=== PATIENT | male | born 1980 | race Caucasian/White ===

== ENCOUNTER 2021-01-12 14:34 | Inpatient (IN) ==
[2021-01-12] MEDS ORDERED: KETOROLAC TROMETHAMINE 15 MG/ML VIAL IV STA (15:20)
[2021-01-12] MEDS ORDERED: SODIUM CHLORIDE 0.9% 1000ML 1,000 ML IV STA (15:20)
[2021-01-12] MEDS ORDERED: ACETAMINOPHEN 500 MG TAB PO STA (15:20)
--- NOTE | 2021-01-12 15:42 | Emergency Department Note ---
Impression & Plan Fever of unknown origin, Arthralgia ED Provider Note CHIEF COMPLAINT: Fever, headaches, joint pain, right leg pain HISTORY OF PRESENTING ILLNESS: This is a 40-year-old male who presents to the emergency department by private vehicle with complaint of fever, headaches, joint pain, and pain in his right leg. Patient states that he first started feeling ill over the weekend, mostly noting some sinus congestion. He states that this is not unusual for him as he has a lot of allergies. He states on Friday he started to develop more of a headache and some body aches, and he got tested for COVID-19, he reports that this was negative. He states he continued to feel worse throughout the week, developing worsening body aches and joint pain and then began to have pain in his right leg going up to his right hip. He states it has been somewhat painful to walk on the leg. He is concern for a blood clot. He notes that he was having some low-grade fevers for the past few days, but today he had a fever of 105. He states that he took Tylenol and Aleve earlier today, and he believes that his fever is starting to break. He is sweating profusely. He notes a mild headache which is frontal in nature and achy, he rates this a 2/10. He states he is mostly having aches all over and pain in his joints. He especially complains of pain in his right knee and right hip, which he rates a 5/10. He denies any chest pain, chest tightness, shortness of breath, cough, hemoptysis, abdominal pain, back pain, numbness/tingling or weakness of the extremities, bowel or bladder dysfunction, nausea, vomiting, diarrhea, or urinary complaints. He has noticed a red rash on both of his legs. He is a smoker. He denies any IV drug abuse history. He denies any penile discharge, testicular pain, or scrotal swelling. Patient denies any concern for STDs and denies any history of this. His last sexual partner was about 4 years ago, female, and he reports that this was monogamous. He denies any history of known tick bites, but does note that he walks through a wooded area twice a day from his house to the bus stop. REVIEW OF SYSTEMS: A complete 10 point review of systems was reviewed with the patient with pertinent positives and negatives as per history of present illness. All else were negative. PAST MEDICAL HISTORY: No significant past medical or surgical history SOCIAL HISTORY: Lives at home, he is a current everyday smoker ALLERGIES: Reviewed in chart and with the patient PHYSICAL EXAM: CONSTITUTIONAL: Pleasant and cooperative. Nontoxic-appearing and in no acute distress, but appears to feel unwell. He is profusely diaphoretic, but is not pale. He does appear to be mildly dehydrated clinically. HEENT: Normocephalic, atraumatic. PERRL, EOMI with no nystagmus. TMs normal bilaterally. Pharynx is not erythematous, no tonsillar edema or exudate. Tacky mucous membranes. NECK: Supple, full active range of motion without discomfort. No nuchal rigidity or meningismus. No cervical adenopathy. RESPIRATORY: Clear to auscultation bilaterally with no wheezing, crackles, r honchi or stridor. Equal expansion bilaterally. CARDIOVASCULAR: Regular rate and rhythm with no murmurs, rubs or gallops. Normal peripheral perfusion. No edema. GASTROINTESTINAL: Soft, nontender, nondistended. Obese abdomen. No palpable masses or HSM. Bowel sounds present in all quadrants. No CVA tenderness bilaterally. MUSCULOSKELETAL: There is mild pain with range of motion of both ankles, both knees, and both hips, more so in the right leg. There is AN area of tenderness to palpation along the proximal aspect of the right medial thigh, no swelling or fluctuance noted. No tenderness directly over the right hip joint. There were no notable joint effusions. INTEGUMENTARY: There is an area of erythema on the anterior aspect of the right calf that is warm and mildly tender to palpation, blanches. There are blotchy areas of light erythema over the anterior aspects of both knees, both thighs, and both feet/ankles. Erythema also noted around the neck and chest. These areas are all blanching and nontender. No blistering or sloughing of skin. No open wounds or purulent discharge. No abscesses. Patchy eczema on the right calf and the anterior aspects of the elbows. NEUROLOGIC: Alert and oriented X 4 with normal affect. Cranial nerves II-XII grossly intact, no facial droop. No pronator drift. No focal neurologic deficits noted. 5/5 strength in all 4 extremities, sensation intact to light touch in all 4 extremities. Dorsiflexion and plantarflexion intact and strong. Normal patellar and Achilles reflexes. Normal speech. Normal gait observed. ED COURSE AND MEDICAL DECISION MAKING: CC: Patient presenting with complaint of fever, headaches, joint pain and diffu se body aches DIFFERENTIAL DIAGNOSIS: Includes, but not limited to viral syndrome, otitis media, pharyngitis, pneumonia, influenza, COVID-19, meningitis, urinary tract infection, sepsis, bacteremia, sinusitis, tickborne illness, sexually transmitted infections, DVT, as well as other pathologies. INTERPRETATION OF LABS: Leukocytosis, no anemia, normal platelets, no significant electrolyte abnormalities, normal renal function, normal liver enzymes. CRP and ESR are elevated. Procalcitonin is significantly elevated. Lactate is within normal limits. Blood cultures pending. Troponin is unde tectable. Urinalysis is negative for infection. Lyme antibodies are negative, Anaplasma smear is negative. Additional tickborne illness testing for send out. COVID-19 negative. EKG: Shows normal sinus rhythm with a rate of 97 bpm, normal intervals, no ST elevation or depression, no ectopy by my interpretation. No previous EKG available for comparison. MEDICATION RECONCILIATION: I attest that I have personally reviewed the patient's current medication list. MDM SUMMARY: Patient was evaluated at bedside, history and physical exam performed. Patient is alert and oriented, in no acute distress, resting calmly in stretcher. He is noted to be tachycardic and was febrile by my check, 100.2 when I assessed him in the room. He is drenched in sweat, he attributes this to his fever coming down and also to his anxiety. He complains primarily of joint pain in both legs, more so in the right leg and up around his right hip. He states he is "deathly afraid that he might have a blood clot." Cardiac monitoring: An order was placed for continuous cardiac monitoring. The monitor shows a rate of 119 bpm with sinus tachycardia rhythm. Orders were placed for labs including inflammatory markers and procalcitonin, lactate, blood cultures x2, Lyme antibodies, Anaplasma smear, send out testing for anaplasmosis, ehrlichiosis, babesiosis, urinalysis, IV fluid bolus x2 L for hydration, p.o. Tylenol and IV Toradol for fever and pain, EKG, chest x-ray, CT of the head, and ultrasound venous Doppler of the right lower extremity. Patient discussed with Dr. Fregoso, who agrees with my assessment, plan, and disposition. Labs and imaging reviewed, notable for leukocytosis and significantly elevated inflammatory markers and procalcitonin. Lactate was normal. Chest x-ray was clear. Head CT was negative for any acute intracranial abnormalities, but did note inflammatory changes consistent with sinusitis. Venous ultrasound was negative for DVT of the right lower extremity, there was note of an enlarged right inguinal lymph node. Initial testing for Lyme and anaplasmosis is negative. Testing for COVID-19 is negative. Patient reassessed multiple times throughout ED stay, he has remained hemodynamically stable, has defervesced appropriately after the Tylenol and Toradol (recheck temp 98.8), and he reports he is feeling significantly improved. He is no longer diaphoretic. I do suspect the patient's symptoms could be related to a tickborne illness, however there is no testing result to support this at this time, and there is not a known history of tick exposure. Given the history of high fever with leukocytosis, inflammatory markers and procalcitonin elevated, and no clear source for the patient's symptoms, I did feel that he warranted admission for empiric antibiotic coverage and further work-up. The patient was agreeable to this. I spoke on the phone with the [facility] hospitalist team, who agreed to evaluate the patient for admission. Antibiotic choice was deferred to the hospitalist team. The patient was stable at time of admission. The chart was completed utilizing [employer] Speech voice recognition software. Grammatical errors, random word insertions, pronoun errors, and incomplete sentences are an occasional consequence of this system due to software l imitations, ambient noise, and hardware issues. Any formal questions or concerns about the content, text, or information contained within the body of this dictation should be directly addressed to the nurse practitioner for clarification. Past Med/Surg History Medical History (Updated 01/12/21 @ 21:35 by STEPHANIE Ramirez) Eczema Surgical History (Updated 01/12/21 @ 20:15 by Shilpa Garcia PA-C) Hx of nasal septoplasty Family History (Updated 01/12/21 @ 20:16 by Shilpa Garcia PA-C) Grandfather (Maternal) Lung cancer Grandmother (Maternal) Lung cancer Mother Rheumatoid arthritis Social History (Updated 01/12/21 @ 20:16 by Shilpa Garcia PA-C) Smoking Status: Current every day smoker Tobacco Type: Cigarettes and E-cigarettes / Vaping Cigarettes Per Day: 1 pack/day; Hx Alcohol Use: Yes (Sixpack of beer on the weekend) Hx Substance Use: Yes Last Used Substance Other:: Previously used marijuana, reports has not used since 04/2020 Feels Safe at Home: Yes Allergies Allergies Allergy/AdvReac Type Severity Reaction Status Date / Time Sulfa (Sulfonamide Allergy Severe anaphylaxis Unverified 01/12/21 20:22 Antibiotics) Cephalosporins Allergy Unknown Hives Unverified 01/12/21 20:23 Home Meds Home Medications Medication Instructions Recorded Confirmed acetaminophen [Tylenol Extra 1,000 mg PO Q6H PRN 01/12/21 01/12/21 Strength] azelastine 2 spray INTRANASAL DAILY 01/12/21 01/12/21 cetirizine [Zyrtec] 10 mg PO DAILY 01/12/21 01/12/21 fluticasone propionate [Flonase 2 spray INTRANASAL DAILY PRN 01/12/21 01/12/21 Allergy Relief] naproxen sodium [Aleve] 440 mg PO BID PRN 01/12/21 01/12/21 Results & Data (ED) Vital Signs Vital Signs - 24 hr 01/12/21 14:36 01/12/21 15:09 01/12/21 15:30 Temperature 36.0 C L Temperature Source Temporal Artery Scan Pulse Rate 139 H 116 H 108 H Pulse Rate from SpO2 Sensor 113 H 107 H Respiratory Rate 20 22 17 Respiratory Effort / Characteristics Non-Labored Spontaneous Respiratory Depth Normal Respiratory Pattern Regular Blood Pressure 137/76 129/78 124/78 Blood Pressure Mean 96 95 93 Blood Pressure Position Sitting Pulse Oximetry 96 96 96 Oxygen Delivery Method Room Air Sepsis Recent Fever Within 48 Hours Yes Sepsis New/Unexplained Change in Mental Status N/A Sepsis Action Taken by Nursing No Action Required 01/12/21 15:31 01/12/21 16:30 01/12/21 17:00 Temperature Temperature Source Pulse Rate 121 H 115 H Pulse Rate from SpO2 Sensor 123 H 110 H 90 Respiratory Rate 16 24 24 Respiratory Effort / Characteristics Respiratory Depth Respiratory Pattern Blood Pressure 152/78 H 171/90 H Blood Pressure Mean 102 117 Blood Pressure Position Pulse Oximetry 96 97 99 Oxygen Delivery Method Sepsis Recent Fever Within 48 Hours Sepsis New/Unexplained Change in Mental Status Sepsis Action Taken by Nursing 01/12/21 18:30 01/12/21 19:00 01/12/21 19:30 Temperature Temperature Source Pulse Rate 108 H 95 H 91 H Pulse Rate from SpO2 Sensor 107 H 95 H Respiratory Rate 21 22 24 Respiratory Effort / Characteristics Respiratory Depth Respiratory Pattern Blood Pressure 133/75 129/67 139/78 Blood Pressure Mean 94 87 98 Blood Pressure Position Pulse Oximetry 97 98 97 Oxygen Delivery Method Sepsis Recent Fever Within 48 Hours Sepsis New/Unexplained Change in Mental Status Sepsis Action Taken by Nursing Laboratory Data Result diagrams: 01/12/21 15:31 01/12/21 15:31 Lab Results 01/12/21 01/12/21 01/12/21 Range/Units 15:31 15:31 15:31 WBC 17.45 H (4.8-10.8) K/uL RBC 4.94 (4.7-6.1) M/uL Hgb 14.7 (14.0-18.0) g/dL Hct 42.5 (42-52) % MCV 86.0 (80-100) fL MCH 29.8 (25-34) pg MCHC 34.6 (32-36) g/dL RDW Std Deviation 41.3 (36.4-46.3) fL RDW Coeff of Vargas 12.9 (11.5-14.5) % Plt Count 187 (130-400) K/uL MPV 10.5 H (7.4-10.4) fL Immature Gran % (Auto) 0.3 % Neut % (Auto) 91.0 % Lymph % (Auto) 2.7 % [place] % (Auto) 5.8 % Eos % (Auto) 0.1 % Baso % (Auto) 0.1 % Neut # (Auto) 15.88 H (1.4-6.5) K/uL Lymph # (Auto) 0.47 L (1.2-3.4) K/uL [place] # (Auto) 1.01 H (0.11-0.59) K/uL Eos # (Auto) 0.01 (0-0.5) K/uL Baso # (Auto) 0.02 (0-0.2) K/uL Immature Gran # (Auto) 0.06 H (0.00-0.02) K/uL ESR (0-15) mm/hr Sodium 137 (136-145) mmol/L Potassium 4.0 (3.5-5.1) mmol/L Chloride 102 (98-107) mmol/L Carbon Dioxide 25 (21-32) mmol/L Anion Gap 10.0 (3-11) BUN 16 (7-18) mg/dl Creatinine 1.36 (0.6-1.4) mg/dl Est Cr Clr Drug Dosing 108.3 ml/min Est GFR ( Amer) 75.4 ml/min Est GFR (Non-Af Amer) 65.1 ml/min BUN/Creatinine Ratio 11.4 (10-20) Glucose 114 H (70-99) mg/dl Lactate (0.4-2.0) mmol/L Calcium 9.6 (8.5-10.1) mg/dl Magnesium (1.8-2.4) mg/dl Total Bilirubin 0.7 (0.2-1) mg/dl AST 20 (15-37) U/L ALT 37 (12-78) U/L Alkaline Phosphatase 63 (45-117) U/L Total Creatine Kinase (39-308) U/L Troponin I < 0.015 (0-0.045) ng/ml C-Reactive Protein 5.46 H (0-0.29) mg/dl Total Protein 7.2 (6.4-8.2) gm/dl Albumin 3.7 (3.4-5.0) gm/dl Globulin 3.5 (2.5-4.0) gm/dl Albumin/Globulin Ratio 1.1 (0.9-2) Procalcitonin 6.69 H (0-0.5) ng/ml Urine Color Urine Appearance (Clear) Urine pH (4.5-7.5) Ur Specific [place] (1.000-1.030) Urine Protein (Negative) Urine Glucose (UA) (Negative) Urine Ketones (Negative) Urine Blood (Negative) Urine Nitrite (Negative) Urine Bilirubin (Negative) Urine Urobilinogen (Negative) Ur Leukocyte Esterase (Negative) Urine WBC (Auto) (0-5) /hpf Urine RBC (Auto) (0-4) /hpf U Hyaline Cast (Auto) (0-5) /lpf U Epithel Cells (Auto) (0-5) /lpf Urine Bacteria (Auto) (Negative) Urine Opiates Screen (Neg) Ur Methadone, Qual (Neg) Urine Barbiturates (Neg) Ur Phencyclidine (PCP) (Neg) U Amphetamin/Meth Scrn (Neg) MDMA (Ecstasy) Screen (Neg) U Benzodiazepines Scrn (Neg) Ur Cocaine Metabolite (Neg) U Marijuana (THC) Screen (Neg) Anaplasma Smear See Comment Lyme Disease IgG Ab Negative (Negative) Lyme Disease IgM Ab Negative (Negative) COVID-19 Eval Order SARS-CoV-2 (PCR) (Negative) 01/12/21 01/12/21 01/12/21 Range/Units 15:31 15:31 15:31 WBC (4.8-10.8) K/uL RBC (4.7-6.1) M/uL Hgb (14.0-18.0) g/dL Hct (42-52) % MCV (80-100) fL MCH (25-34) pg MCHC (32-36) g/dL RDW Std Deviation (36.4-46.3) fL RDW Coeff of Vargas (11.5-14.5) % Plt Count (130-400) K/uL MPV (7.4-10.4) fL Immature Gran % (Auto) % Neut % (Auto) % Lymph % (Auto) % [place] % (Auto) % Eos % (Auto) % Baso % (Auto) % Neut # (Auto) (1.4-6.5) K/uL Lymph # (Auto) (1.2-3.4) K/uL [place] # (Auto) (0.11-0.59) K/uL Eos # (Auto) (0-0.5) K/uL Baso # (Auto) (0-0.2) K/uL Immature Gran # (Auto) (0.00-0.02) K/uL ESR 27 H (0-15) mm/hr Sodium (136-145) mmol/L Potassium (3.5-5.1) mmol/L Chloride (98-107) mmol/L Carbon Dioxide (21-32) mmol/L Anion Gap (3-11) BUN (7-18) mg/dl Creatinine (0.6-1.4) mg/dl Est Cr Clr Drug Dosing ml/min Est GFR ( Amer) ml/min Est GFR (Non-Af Amer) ml/min BUN/Creatinine Ratio (10-20) Glucose (70-99) mg/dl Lactate (0.4-2.0) mmol/L Calcium (8.5-10.1) mg/dl Magnesium 1.8 (1.8-2.4) mg/dl Total Bilirubin (0.2-1) mg/dl AST (15-37) U/L ALT (12-78) U/L Alkaline Phosphatase (45-117) U/L Total Creatine Kinase 213 (39-308) U/L Troponin I (0-0.045) ng/ml C-Reactive Protein (0-0.29) mg/dl Total Protein (6.4-8.2) gm/dl Albumin (3.4-5.0) gm/dl Globulin (2.5-4.0) gm/dl Albumin/Globulin Ratio (0.9-2) Procalcitonin (0-0.5) ng/ml Urine Color Urine Appearance (Clear) Urine pH (4.5-7.5) Ur Specific [place] (1.000-1.030) Urine Protein (Negative) Urine Glucose (UA) (Negative) Urine Ketones (Negative) Urine Blood (Negative) Urine Nitrite (Negative) Urine Bilirubin (Negative) Urine Urobilinogen (Negative) Ur Leukocyte Esterase (Negative) Urine WBC (Auto) (0-5) /hpf Urine RBC (Auto) (0-4) /hpf U Hyaline Cast (Auto) (0-5) /lpf U Epithel Cells (Auto) (0-5) /lpf Urine Bacteria (Auto) (Negative) Urine Opiates Screen (Neg) Ur Methadone, Qual (Neg) Urine Barbiturates (Neg) Ur Phencyclidine (PCP) (Neg) U Amphetamin/Meth Scrn (Neg) MDMA (Ecstasy) Screen (Neg) U Benzodiazepines Scrn (Neg) Ur Cocaine Metabolite (Neg) U Marijuana (THC) Screen (Neg) Anaplasma Smear Lyme Disease IgG Ab (Negative) Lyme Disease IgM Ab (Negative) COVID-19 Eval Order SARS-CoV-2 (PCR) (Negative) 01/12/21 01/12/2101/12/21 Range/Units 15:37 19:16 19:16 WBC (4.8-10.8) K/uL RBC (4.7-6.1) M/uL Hgb (14.0-18.0) g/dL Hct (42-52) % MCV (80-100) fL MCH (25-34) pg MCHC (32-36) g/dL RDW Std Deviation (36.4-46.3) fL RDW Coeff of Vargas (11.5-14.5) % Plt Count (130-400) K/uL MPV (7.4-10.4) fL Immature Gran % (Auto) % Neut % (Auto) % Lymph % (Auto) % [place] % (Auto) % Eos % (Auto) % Baso % (Auto) % Neut # (Auto) (1.4-6.5) K/uL Lymph # (Auto) (1.2-3.4) K/uL [place] # (Auto) (0.11-0.59) K/uL Eos # (Auto) (0-0.5) K/uL Baso # (Auto) (0-0.2) K/uL Immature Gran # (Auto) (0.00-0.02) K/uL ESR (0-15) mm/hr Sodium (136-145) mmol/L Potassium (3.5-5.1) mmol/L Chloride (98-107) mmol/L Carbon Dioxide (21-32) mmol/L Anion Gap (3-11) BUN (7-18) mg/dl Creatinine (0.6-1.4) mg/dl Est Cr Clr Drug Dosing ml/min Est GFR ( Amer) ml/min Est GFR (Non-Af Amer) ml/min BUN/Creatinine Ratio (10-20) Glucose (70-99) mg/dl Lactate 1.5 (0.4-2.0) mmol/L Calcium (8.5-10.1) mg/dl Magnesium (1.8-2.4) mg/dl Total Bilirubin (0.2-1) mg/dl AST (15-37) U/L ALT (12-78) U/L Alkaline Phosphatase (45-117) U/L Total Creatine Kinase (39-308) U/L Troponin I (0-0.045) ng/ml C-Reactive Protein (0-0.29) mg/dl Total Protein (6.4-8.2) gm/dl Albumin (3.4-5.0) gm/dl Globulin (2.5-4.0) gm/dl Albumin/Globulin Ratio (0.9-2) Procalcitonin (0-0.5) ng/ml Urine Color Urine Appearance (Clear) Urine pH (4.5-7.5) Ur Specific [place] (1.000-1.030) Urine Protein (Negative) Urine Glucose (UA) (Negative) Urine Ketones (Negative) Urine Blood (Negative) Urine Nitrite (Negative) Urine Bilirubin (Negative) Urine Urobilinogen (Negative) Ur Leukocyte Esterase (Negative) Urine WBC (Auto) (0-5) /hpf Urine RBC (Auto) (0-4) /hpf U Hyaline Cast (Auto) (0-5) /lpf U Epithel Cells (Auto) (0-5) /lpf Urine Bacteria (Auto) (Negative) Urine Opiates Screen (Neg) Ur Methadone, Qual (Neg) Urine Barbiturates (Neg) Ur Phencyclidine (PCP) (Neg) U Amphetamin/Meth Scrn (Neg) MDMA (Ecstasy) Screen (Neg) U Benzodiazepines Scrn (Neg) Ur Cocaine Metabolite (Neg) U Marijuana (THC) Screen (Neg) Anaplasma Smear Lyme Disease IgG Ab (Negative) Lyme Disease IgM Ab (Negative) COVID-19 Eval Order Covid19 at [facility] SARS-CoV-2 (PCR) NEGATIVE (Negative) 01/12/21 01/12/21 Range/Units 19:18 19:18 WBC (4.8-10.8) K/uL RBC (4.7-6.1) M/uL Hgb (14.0-18.0) g/dL Hct (42-52) % MCV (80-100) fL MCH (25-34) pg MCHC (32-36) g/dL RDW Std Deviation (36.4-46.3) fL RDW Coeff of Vargas (11.5-14.5) % Plt Count (130-400) K/uL MPV (7.4-10.4) fL Immature Gran % (Auto) % Neut % (Auto) % Lymph % (Auto) % [place] % (Auto) % Eos % (Auto) % Baso % (Auto) % Neut # (Auto) (1.4-6.5) K/uL Lymph # (Auto) (1.2-3.4) K/uL [place] # (Auto) (0.11-0.59) K/uL Eos # (Auto) (0-0.5) K/uL Baso # (Auto) (0-0.2) K/uL Immature Gran # (Auto) (0.00-0.02) K/uL ESR (0-15) mm/hr Sodium (136-145) mmol/L Potassium (3.5-5.1) mmol/L Chloride (98-107) mmol/L Carbon Dioxide (21-32) mmol/L Anion Gap (3-11) BUN (7-18) mg/dl Creatinine (0.6-1.4) mg/dl Est Cr Clr Drug Dosing ml/min Est GFR ( Amer) ml/min Est GFR (Non-Af Amer) ml/min BUN/Creatinine Ratio (10-20) Glucose (70-99) mg/dl Lactate (0.4-2.0) mmol/L Calcium (8.5-10.1) mg/dl Magnesium (1.8-2.4) mg/dl Total Bilirubin (0.2-1) mg/dl AST (15-37) U/L ALT (12-78) U/L Alkaline Phosphatase (45-117) U/L Total Creatine Kinase (39-308) U/L Troponin I (0-0.045) ng/ml C-Reactive Protein (0-0.29) mg/dl Total Protein (6.4-8.2) gm/dl Albumin (3.4-5.0) gm/dl Globulin (2.5-4.0) gm/dl Albumin/Globulin Ratio (0.9-2) Procalcitonin (0-0.5) ng/ml Urine Color Yellow Urine Appearance Clear (Clear) Urine pH 5.5 (4.5-7.5) Ur Specific [place] 1.016 (1.000-1.030) Urine Protein Trace H (Negative) Urine Glucose (UA) Negative (Negative) Urine Ketones Negative (Negative) Urine Blood 1+ H (Negative) Urine Nitrite Negative (Negative) Urine Bilirubin Negative (Negative) Urine Urobilinogen Negative (Negative) Ur Leukocyte Esterase Negative (Negative) Urine WBC (Auto) 1-5 (0-5) /hpf Urine RBC (Auto) 0-4 (0-4) /hpf U Hyaline Cast (Auto) 1-5 (0-5) /lpf U Epithel Cells (Auto) 0-5 (0-5) /lpf Urine Bacteria (Auto) Negative (Negative) Urine Opiates Screen Neg (Neg) Ur Methadone, Qual Neg (Neg) Urine Barbiturates Neg (Neg) Ur Phencyclidine (PCP) Neg (Neg) U Amphetamin/Meth Scrn Neg (Neg) MDMA (Ecstasy) Screen Neg (Neg) U Benzodiazepines Scrn Neg (Neg) Ur Cocaine Metabolite Neg (Neg) U Marijuana (THC) Screen Neg (Neg) Anaplasma Smear Lyme Disease IgG Ab (Negative) Lyme Disease IgM Ab (Negative) COVID-19 Eval Order SARS-CoV-2 (PCR) (Negative) Administered Medications Doxycycline Hyclate 100 mg/ (Dextrose) 110 mls @ 50 mls/hr IV NOW STA Stop: 01/12/21 22:02 Last Admin: 01/12/21 20:17 Dose: 50 mls/hr Documented by: [id number] Discontinued Medications Acetaminophen (Acetaminophen 500 Mg Tab) 1,000 mg PO ONE STA Stop: 01/12/21 15:21 Last Admin: 01/12/21 16:54 Dose: 1,000 mg Documented by: [id number] Sodium Chloride (Nss 1000ml) 1,000 mls @ 999 mls/hr IV .Q1H1M STA Stop: 01/12/21 16:20 Last Infusion: 01/12/21 18:16 Dose: 0 mls/hr Documented by: [id number] Admin: 01/12/21 16:55 Dose: 999 mls/hr Documented by: [id number] Ioversol (Optiray 320 100ml) 94 ml IV ONCE ONE Stop: 01/12/21 21:01 Last Admin: 01/12/21 21:01 Dose: 1 ml Documented by: [id number] Ketorolac Tromethamine (Ketorolac Tromethamine 15 Mg/Ml Vial) 15 mg IV NOW STA Stop: 01/12/21 15:21 Last Admin: 01/12/21 16:55 Dose: 15 mg Documented by: [id number] Imaging Data Radiologist's Impression: Chest X-Ray 01/12/21 15:20 SINGLE VIEW CHEST CLINICAL HISTORY: Fever. FINDINGS: 2 AP, portable, upright chest radiographs are compared to study dated 07/16/2012. The cardiomediastinal silhouette is top normal for projection. The lungs and pleural spaces are clear. No pneumothorax is seen. The bony thorax is grossly intact. IMPRESSION: No acute cardiopulmonary abnormality. ACT 112: Negative or not required by law. Electronically signed by: Chang Zimmer M.D. 01/12/2021 3:[address] 01/12/21 15:20 CT head/brain wo con CLINICAL HISTORY: headache, sinus pain, fever COMPARISON STUDY: No previous studies for comparison. TECHNIQUE: Axial CT of the brain is performed from the vertex to the skull base. IV contrast was not administered for this examination. A dose lowering technique was utilized adhering to the principles of ALARA. CT DOSE: 537.48 mGy.cm FINDINGS: No acute intracranial hemorrhage, no midline shift or space occupying lesions. [place]-white matter differentiation is preserved. Ventricles are midline, of normal size and configuration. No acute depressed skull fractures seen. Partial opacification of the left ethmoid air cells, partially visualized left maxillary sinus and left sphenoid sinus are seen likely representing sinusitis. Bilateral mastoid air cells are patent and well-aerated. IMPRESSION: 1. No acute intracranial hemorrhage, no midline shift or space occupying lesions. 2. Inflammatory changes involving left ethmoid air cells as well as visualized portion of the left sphenoid and maxillary sinuses which could represent sinusitis. ACT 112: Negative or not required by law. The above report was generated using voice recognition software. It may contain grammatical, syntax or spelling errors. Electronically signed by: Klaudia Baxter DO 01/12/2021 4:44 PM Venous Doppler Study 01/12/21 15:20 RIGHT LOWER EXTREMITY VENOUS DOPPLER HISTORY: Right leg pain, swelling, eval DVT COMPARISON STUDY: None. FINDINGS: There is normal compressibility, flow, and augmentation within the right lower extremity deep venous system. Mildly enlarged right inguinal lymph node measuring 4.1 x 1.3 x 3.1 cm. This demonstrates a normal fatty hilum and thin cortex. IMPRESSION: No DVT within the right lower extremity ACT 112: Negative or not required by law. Electronically signed by: Warner Doyle M.D. 01/12/2021 5:51 PM Discharge Plan Visit Data Chief Complaint: Leg Injury/Pain Stated Complaint: PAIN IN LEG/WARM TO TOUCH ED Provider: Gardenia Fregoso ED Midlevel Provider: Claudia Velásquez Discharge Problem: Fever of unknown origin, Arthralgia Patient Disposition: Admitted As Inpatient Condition: Good Forms Stand Alone Forms: [facility] Prescriptions Prescriptions: No Action cetirizine [Zyrtec] 10 mg Tablet 10 mg PO DAILY RF: 0 acetaminophen [Tylenol Extra Strength] 500 mg Tablet 1,000 mg PO Q6H PRN (Reason: Pain) RF: 0 naproxen sodium [Aleve] 220 mg Tablet 440 mg PO BID PRN (Reason: Pain) RF: 0 azelastine 137 mcg (0.1 %) aerosol,spray 2 spray INTRANASAL DAILY RF: 0 fluticasone propionate [Flonase Allergy Relief] 50 mcg/actuation Spra y,Suspension 2 spray INTRANASAL DAILY PRN (Reason: allergies) RF: 0 Referrals Referrals: Savita Argueta MD [Primary Care Provider] - Discharge Problem: Arthralgia Qualifiers: Joint pain location: unspecified Qualified Code(s): M25.50 - Pain in unspecified joint
--- NOTE | 2021-01-12 15:50 | XRay Report ---
SINGLE VIEW CHEST CLINICAL HISTORY: Fever. FINDINGS: 2 AP, portable, upright chest radiographs are compared to study dated 07/16/2012. The cardi omediastinal silhouette is top normal for projection. The lungs and pleural spaces are clear. No pneu mothorax is seen. The bony thorax is grossly intact. IMPRESSION: No acute cardiopulmonary abnormality. ACT 112: Negative or not required by law. Electronically signed by: Chang Zimmer M.D. 01/12/2021 3:49 PM
[2021-01-12 15:51] LABS: Basophils # (auto) 0.02 K/uL (0-0.2); Basophils % (auto) 0.1 %; Eosinophils # (auto) 0.01 K/uL (0-0.5); Eosinophils % (auto) 0.1 %; Hematocrit (blood only) 42.5 % (42-52); Hemoglobin 14.7 g/dL (14.0-18.0); Immature Granulocytes # (auto) 0.06 K/uL (0.00-0.02); Immature Granulocytes % (auto) 0.3 %; Lymphocytes # (auto) 0.47 K/uL (1.2-3.4); Lymphocytes % (auto) 2.7 %; Mean Corpuscular Hemoglobin 29.8 pg (25-34); Mean Corpuscular Hgb Conc 34.6 g/dL (32-36); Mean Platelet Volume 10.5 fL (7.4-10.4); Monocytes # (auto) 1.01 K/uL (0.11-0.59); Monocytes % (auto) 5.8 %; Neutrophils # (auto) 15.88 K/uL (1.4-6.5); Platelet Count 187 K/uL (130-400); RDW Coefficient of Variation 12.9 % (11.5-14.5); RDW Standard Deviation 41.3 fL (36.4-46.3); Red Blood Count 4.94 M/uL (4.7-6.1); White Blood Count 17.45 K/uL (4.8-10.8)
[2021-01-12 16:26] LABS: Alanine Aminotransferase 37 U/L (12-78); Albumin Level 3.7 gm/dl (3.4-5.0); Aspartate Aminotransferase 20 U/L (15-37); BUN Creatinine Ratio 11.4 (10-20); Blood Urea Nitrogen 16 mg/dl (7-18); Calcium 9.6 mg/dl (8.5-10.1); Carbon Dioxide 25 mmol/L (21-32); Chloride 102 mmol/L (98-107); Creatinine Clr Calc Pharmacy 108.3 ml/min; Est GFR (African American) 75.4 ml/min; Est GFR (Non-African American) 65.1 ml/min; Glucose 114 mg/dl (70-99); Sodium 137 mmol/L (136-145)
[2021-01-12 16:31] LABS: Albumin Globulin Ratio 1.1 (0.9-2); Alkaline Phosphatase 63 U/L (45-117); Bilirubin,Total 0.7 mg/dl (0.2-1); C Reactive Protein 5.46 mg/dl (0-0.29); Globulin 3.5 gm/dl (2.5-4.0); Total Protein 7.2 gm/dl (6.4-8.2); Troponin I < 0.015 ng/ml (0-0.045)
--- NOTE | 2021-01-12 16:46 | CT Scan Report ---
CT head/brain wo con CLINICAL HISTORY: headache, sinus pain, fever COMPARISON STUDY: No previous studies for comparison. TECHNIQUE: Axial CT of the brain is performed from the vertex to the skull base. IV contrast was not administered for this examination. A dose lowering technique was utilized adhering to the principles of ALARA. CT DOSE: 537.48 mGy.cm FINDINGS: No acute intracranial hemorrhage, no midline shift or space occupying lesions. Bailon-white matter differentiation is preserved. Ventricles are midline, of normal size and configuration. No acute depressed skull fractures seen. Partial opacification of the left ethmoid air cells, partial ly visualized left maxillary sinus and left sphenoid sinus are seen likely representing sinusitis. Bi lateral mastoid air cells are patent and well-aerated. IMPRESSION: 1. No acute intracranial hemorrhage, no midline shift or space occupying lesions. 2. Inflammatory changes involving left ethmoid air cells as well as visualized portion of the left s phenoid and maxillary sinuses which could represent sinusitis. ACT 112: Negative or not required by law. The above report was generated using voice recognition software. It may contain grammatical, syntax o r spelling errors. Electronically signed by: Klaudia Baxter DO 01/12/2021 4:44 PM
[2021-01-12 16:49] LABS: Procalcitonin 6.69 ng/ml (0-0.5)
[2021-01-12 16:55] LABS: Lyme Ab IgG w/WB Rflx Negative (Negative); Lyme Ab IgM w/WB Rflx Negative (Negative)
--- NOTE | 2021-01-12 17:52 | Ultrasound Report ---
RIGHT LOWER EXTREMITY VENOUS DOPPLER HISTORY: Right leg pain, swelling, eval DVT COMPARISON STUDY: None. FINDINGS: There is normal compressibility, flow, and augmentation within the right lower extremity de ep venous system. Mildly enlarged right inguinal lymph node measuring 4.1 x 1.3 x 3.1 cm. This demons trates a normal fatty hilum and thin cortex. IMPRESSION: No DVT within the right lower extremity ACT 112: Negative or not required by law. Electronically signed by: Warner Doyle M.D. 01/12/2021 5:51 PM
[2021-01-12] MEDS ORDERED: DOXYCYCLINE HYCLATE 100 MG in DEXTROSE 5% 100 ML IV STA (19:51)
[2021-01-12 20:05] LABS: Appearance Urine Clear (Clear); Bacteria Urine Automated Negative (Negative); Bilirubin Urine Negative (Negative); Blood Urine 1+ (Negative); Color Urine Yellow; Epithelial Cell Urine Auto 0-5 /lpf (0-5); Glucose Urine UA Negative (Negative); Ketones Urine Negative (Negative); Leukocyte Esterase Urine Negative (Negative); Nitrite Urine Negative (Negative); Protein Urine Trace (Negative); RBC Urine Automated 0-4 /hpf (0-4); Specific Gravity Urine 1.016 (1.000-1.030); Urobilinogen Urine Negative (Negative); pH Urine 5.5 (4.5-7.5)
--- NOTE | 2021-01-12 20:21 | History & Physical Report ---
Date of Service January 12, 2021 Assessment & Plan (1) Fever: HPI, PMH, PE completed by Shilpa Garcia PA-C Assessment and Plan per Dr Be. History of Present Illness Chief Complaint: Fever Primary Care Provider: Savita Argueta MD Pt is 40 y/o M with PMH tobacco smoker, prior history nasal septum repair presented to ER with complaint of fever. Patient states 6 days ago started with nasal congestion, sore throat, rhinorrhea, nonproductive cough. Has been having frontal headache and myalgias. He reports 4 days ago went to [employer] and had reported negative COVID-19 test at that time. Reports headache is frontal in location. patient states he is been checking his temperature and they have been 99F. Today he had sweats and chills and took his temperature and had reported 105F. He took Aleve which decreased fever. He reports today had painful area to right upper anterior thigh and noted area of erythema that was tender and warm to palpation. Later in the day noted similar red area to right lower anterior leg that is tender to palpation. Denies any discharge. Since being in ER noticed some redness to right and left knee however denies any discomfort or loss of range of motion. Denies other joint edema or erythema. Patient denies any known ill contacts. Denies recent travel. Reports no sexual activity for 4 years. Denies IV drug use. Denies known insect/tick bite. Denies history of MRSA. History eczema and reports has had dry scaly patch to right anterior lower leg for years without changes. Reports had second Pfizer COVID-19 vaccine on December 11, 2020. Denies N/V/D/C, loss of taste or smell, dizziness, syncope, vision changes, neck pain, CP, orthopnea, palpitations, dysphagia, dysphagia, choking, otalgia, abdominal pain, paresthesias, weakness, extremity weakness, extremity edema, urinary symptoms. In ER T: 36C, P: 139 down to 91, BP: 137/76, 96% on room air. WBC: 17, ESR: 27, CRP: 5.5, lactate: 1.5, procalcitonin: 6.6. Negative COVID 19 PCR Tickborne illness labs pending CT head: No acute intracranial hemorrhage, no midline shift or space occupying lesions. Inflammatory changes involving left ethmoid air cells as well as visualized portion of the left sphenoid and maxillary sinuses which could represent sinusitis. Chest x-ray: No acute infiltrate RLE venous Doppler: No DVT In ER was given 2 L NSS. Patient being admitted for further evaluation and treatment Allergies Allergy/AdvReac Type Severity Reaction Status Date / Time Sulfa (Sulfonamide Allergy Severe anaphylaxis Unverified 01/12/21 20:22 Antibiotics) Cephalosporins Allergy Unknown Hives Unverified 01/12/21 20:23 Home Medications Medication Instructions Recorded Confirmed Type acetaminophen [Tylenol Extra 1,000 mg PO Q6H PRN 01/12/21 01/12/21 History Strength] azelastine 2 spray INTRANASAL DAILY 01/12/21 01/12/21 History cetirizine [Zyrtec] 10 mg PO DAILY 01/12/21 01/12/21 History fluticasone propionate [Flonase 2 spray INTRANASAL DAILY PRN 01/12/21 01/12/21 History Allergy Relief] naproxen sodium [Aleve] 440 mg PO BID PRN 01/12/21 01/12/21 History Past Med/Surg History Medical History (Updated 01/12/21 @ 21:35 by STEPHANIE Ramirez) Eczema Surgical History (Updated 01/12/21 @ 20:15 by Shilpa Garcia PA-C) Hx of nasal septoplasty Family History (Updated 01/12/21 @ 20:16 by Shilpa Garcia PA-C) Grandfather (Maternal) Lung cancer Grandmother (Maternal) Lung cancer Mother Rheumatoid arthritis Social History (Updated 01/12/21 @ 20:16 by Shilpa Garcia PA-C) Smoking Status: Current every day smoker Tobacco Type: Cigarettes and E-cigarettes / Vaping Cigarettes Per Day: 20; Second Hand Exposure: No; Do You Dip or Chew Tobacco: No; Tobacco Cessation Education Requested by Patient: No Hx Alcohol Use: Yes Hx Substance Use: No Beliefs That Will Affect Care: None Current Living Situation: Alone Feels Safe at Home: Yes Safety Concerns: Feels Safe At This Time Assistive Devices: Glasses Review of Systems Review of Systems: All systems reviewed & are unremarkable except as noted in HPI & below Physical Exam Physical Exam: General: no distress, WDWN Head: normocephalic, atraumatic Eyes: PERRL, EOM's intact, conjunctiva non-injected, anicteric ENT: normal inspection external ears, nose, pharynx without erythema, uvula midline, tonsils without exudate or edema, mucous membranes moist Neck: supple, trachea midline, non-tender, ROM intact Lungs: clear, no respiratory distress, no wheezing/rhonchi/rales CV: RRR, no murmur, no pretibial edema Abd: normal BS, soft, non-tender, No CVA tenderness Ext: no cyanosis, no calf tenderness; RLE: +area of erythema measures 12 cm x 6 cm with warmth and tenderness to palpation, + area of erythema measures 13 cm x 17 cm to right lower anterior mid parada with tenderness and warmth to palpation. Right mid anterior parada with plaque. No purulent drainage noted. Left medial and anterior knee with slight erythema, no warmth or tenderness to palpation, range of motion intact. Right medial knee with erythema with no warmth or tenderness to palpation, range of motion intact and nontender. Bilateral elbow and ankles without edema or erythema Neuro: A&O x 3, no focal deficits noted, normal affect Skin: warm, dry, as above in extremities. No rashes noted to palms or soles. Right index finger nail yellow discoloration, otherwise nails without abnormality Results & Data Results & Data ([facility]) Vital Signs (Past 12 Hours) Vital Signs Temp Pulse Resp BP Pulse Ox 01/12/21 19:30 91 H 24 139/78 97 01/12/21 19:00 95 H 22 129/67 98 01/12/21 18:30 108 H 21 133/75 97 01/12/21 17:00 24 171/90 H 99 01/12/21 16:30 115 H 24 152/78 H 97 01/12/21 15:31 121 H 16 96 01/12/21 15:30 108 H 17 124/78 96 01/12/21 15:09 116 H 22 129/78 96 01/12/21 14:36 36.0 C L 139 H 20 137/76 96 Laboratory Results Short CBC 01/12/21 Range/Units 15:31 WBC 17.45 H (4.8-10.8) K/uL Hgb 14.7 (14.0-18.0) g/dL Hct 42.5 (42-52) % Plt Count 187 (130-400) K/uL BMP 01/12/21 15:31 Sodium 137 Potassium 4.0 Chloride 102 Carbon Dioxide 25 BUN 16 Creatinine 1.36 Glucose 114 H Calcium 9.6 Cardiac Enzymes 01/12/21 01/12/21 Range/Units 15:31 15:31 Total Creatine Kinase 213 (39-308) U/L Troponin I < 0.015 (0-0.045) ng/ml Liver Function 01/12/21 Range/Units 15:31 Total Bilirubin 0.7 (0.2-1) mg/dl AST 20 (15-37) U/L ALT 37 (12-78) U/L Alkaline Phosphatase 63 (45-117) U/L Albumin 3.7 (3.4-5.0) gm/dl Urine 01/12/21 Range/Units 19:18 Urine Color Yellow Urine Appearance Clear (Clear) Urine pH 5.5 (4.5-7.5) Ur Specific [place] 1.016 (1.000-1.030) Urine Protein Trace H (Negative) Urine Glucose (UA) Negative (Negative) Diagnostic Findings Chest X-Ray 01/12/21 15:20 SINGLE VIEW CHEST CLINICAL HISTORY: Fever. FINDINGS: 2 AP, portable, upright chest radiographs are compared to study dated 07/16/2012. The cardiomediastinal silhouette is top normal for projection. The lungs and pleural spaces are clear. No pneumothorax is seen. The bony thorax is grossly intact. IMPRESSION: No acute cardiopulmonary abnormality. ACT 112: Negative or not required by law. Electronically signed by: Chang Zimmer M.D. 01/12/2021 3:[address] 01/12/21 15:20 CT head/brain wo con CLINICAL HISTORY: headache, sinus pain, fever COMPARISON STUDY: No previous studies for comparison. TECHNIQUE: Axial CT of the brain is performed from the vertex to the skull base. IV contrast was not administered for this examination. A dose lowering technique was utilized adhering to the principles of ALARA. CT DOSE: 537.48 mGy.cm FINDINGS: No acute intracranial hemorrhage, no midline shift or space occupying lesions. Bailon-white matter differentiation is preserved. Ventricles are midline, of normal size and configuration. No acute depressed skull fractures seen. Partial opacification of the left ethmoid air cells, partially visualized left maxillary sinus and left sphenoid sinus are seen likely representing sinusitis. Bilateral mastoid air cells are patent and well-aerated. IMPRESSION: 1. No acute intracranial hemorrhage, no midline shift or space occupying lesions. 2. Inflammatory changes involving left ethmoid air cells as well as visualized portion of the left sphenoid and maxillary sinuses which could represent sinusitis. ACT 112: Negative or not required by law. The above report was generated using voice recognition software. It may contain grammatical, syntax or spelling errors. Electronically signed by: Klaudia Baxter DO 01/12/2021 4:44 PM Venous Doppler Study 01/12/21 15:20 RIGHT LOWER EXTREMITY VENOUS DOPPLER HISTORY: Right leg pain, swelling, eval DVT COMPARISON STUDY: None. FINDINGS: There is normal compressibility, flow, and augmentation within the right lower extremity deep venous system. Mildly enlarged right inguinal lymph node measuring 4.1 x 1.3 x 3.1 cm. This demonstrates a normal fatty hilum and thin cortex. IMPRESSION: No DVT within the right lower extremity ACT 112: Negative or not required by law. Electronically signed by: Warner Doyle M.D. 01/12/2021 5:51 PM Supervising Physician Co-Signing Physician Notes IM ATTENDING : Patient seen and examined. History obtained from patient and records. Preceding documentation by Ms. Shilpa Garcia PA-C reviewed. In addition, CT right leg results as follows: 1. Mild right pelvic and right inguinal lymphadenopathy with adjacent fat stranding. This is nonspecific but could be reactive. Follow-up right inguinal ultrasound in one to 2 months is recommended to ensure resolution. 2. Mild skin thickening and subcutaneous fat stranding within the anteromedial thigh as well as the pretibial soft tissues. This is nonspecific but favors a cellulitis. No loculated fluid collections to suggest an abscess. 3. No underlying bony abnormality within the right lower extremity. FINAL ASSESSMENT AND PLAN as follows : Sepsis secondary to RLE cellulitis Hyperglycemia rule out DM Ongoing tobacco abuse Medical telemetry CS. Doxycycline for now Add Ciprofloxacin if with progression of swelling IVF May need Orthopedics evaluation if right leg swelling progresses to abscess formation Check hemoglobin A1c Nicotine patch as needed DVT prophylaxis per Lovenox subcu Text document was generated using [employer] voice recognition software. It may contain grammatical or spelling errors. Kindly contact undersigned for clarification of any documentation item in question.
[2021-01-12] MEDS ORDERED: OPTIRAY 320 100ml IV ONE (21:00)
[2021-01-12 21:30] LABS: Amphetamines+Metham, Urine Neg (Neg); Barbiturates, Urine Neg (Neg); Benzodiazepine, Urine Neg (Neg); Cocaine, Urine Neg (Neg); MDMA (Ecstacy), Urine Neg (Neg); Methadone, Urine Neg (Neg); Opiate, Urine Neg (Neg); Phencyclidine, Urine Neg (Neg)
--- NOTE | 2021-01-12 21:55 | CT Scan Report ---
CT femur RT w con, CT tib/fib RT w con HISTORY: Right thigh and lower leg swelling. TECHNIQUE: Multiaxial CT images of the right femur and right tibia/fibula were performed following th e intravenous administration of 94 cc of Optiray 320. Sagittal and coronal reformations also obtained . COMPARISON STUDY: Right leg venous Doppler 01/12/2021. FINDINGS: There are few mildly enlarged right pelvic sidewall and right inguinal lymph nodes with min imal adjacent fat stranding. Dominant right pelvic sidewall lymph node measures 2.3 x 0.9 cm. Dominan t right inguinal lymph node measures 2.8 x 1.2 cm. There is a tiny fat-containing right inguinal matt ia. The right thigh and right lower leg musculature appears within normal limits. The major vascular structures are patent. No loculated fluid collections to suggest an abscess. No mass identified withi n the right lower extremity. Mild skin thickening and subcutaneous fat stranding within the proximal to mid right medial thigh. No fractures within the right hip, right femur, right tibia, or right fibu la. No knee effusion. There is also skin thickening and subcutaneous edema within the pretibial soft tissues of the right lower leg. This is most pronounced within the mid to distal right lower leg. Inc omplete filling within the superficial veins of the distal right lower leg. This is likely due to the timing of contrast given the recent negative venous Doppler. IMPRESSION: 1. Mild right pelvic and right inguinal lymphadenopathy with adjacent fat stranding. This is nonspeci fic but could be reactive. Follow-up right inguinal ultrasound in one to 2 months is recommended to e nsure resolution. 2. Mild skin thickening and subcutaneous fat stranding within the anteromedial thigh as well as the p retibial soft tissues. This is nonspecific but favors a cellulitis. No loculated fluid collections to suggest an abscess. 3. No underlying bony abnormality within the right lower extremity. ACT 112: Negative or not required by law. Electronically signed by: Warner Doyle M.D. 01/12/2021 9:53 PM
[2021-01-12] MEDS ORDERED: SODIUM CHLORIDE 0.9% 1000ML 1,000 ML IV ONE (23:02)
[2021-01-12] MEDS ORDERED: PROMETHAZINE HCL 12.5 MG in SODIUM CHLORIDE 0.9% 50 ML IV PRN (23:02)
[2021-01-12] MEDS ORDERED: LORazepam 0.5 MG/1 ML VIAL IV PRN (23:02)
[2021-01-12] MEDS ORDERED: FLUTICASONE PROPIONATE NA SPR 16 GM BTL NAE PRN (23:02)
[2021-01-12] MEDS: IBUPROFEN 200 MG TAB PO PRN (23:49)
[2021-01-13] MEDS ORDERED: MAGNESIUM SULFATE / D5W 1 GM/100 ML BAG IV ONE (04:16)
[2021-01-13] MEDS ORDERED: CIPROFLOXACIN / D5W 400 MG/200 ML BAG IV STA (04:22)
--- NOTE | 2021-01-13 04:28 | Communication Note ---
Date of Service: January 13, 2021
[2021-01-13] MEDS: KETOROLAC TROMETHAMINE 15 MG/ML VIAL IV PRN ×2 (04:31→21:54)
[2021-01-13] MEDS ORDERED: CIPROFLOXACIN CONSULT ACTIVE PRN (05:13)
[2021-01-13 08:04] LABS: Basophils # (auto) 0.03 K/uL (0-0.2); Basophils % (auto) 0.2 %; Eosinophils # (auto) 0.17 K/uL (0-0.5); Eosinophils % (auto) 1.3 %; Hemoglobin 12.9 g/dL (14.0-18.0); Immature Granulocytes # (auto) 0.03 K/uL (0.00-0.02); Immature Granulocytes % (auto) 0.2 %; Lymphocytes % (auto) 6.7 %; Mean Corpuscular Hemoglobin 29.5 pg (25-34); Mean Corpuscular Hgb Conc 33.9 g/dL (32-36); Monocytes # (auto) 0.91 K/uL (0.11-0.59); Monocytes % (auto) 6.7 %; Neutrophils # (auto) 11.47 K/uL (1.4-6.5); Neutrophils % (auto) 84.9 %; Platelet Count 156 K/uL (130-400); RDW Coefficient of Variation 13.1 % (11.5-14.5); RDW Standard Deviation 42.4 fL (36.4-46.3); Red Blood Count 4.37 M/uL (4.7-6.1); White Blood Count 13.51 K/uL (4.8-10.8)
[2021-01-13] MEDS: ADVANCED PROBIOTIC 1250 MG CAPSULE PO SCH (08:11)
[2021-01-13] MEDS: ENOXAPARIN INJ 40 MG/0.4 ML SYR SQ SCH (08:12)
[2021-01-13] MEDS: CETIRIZINE HCL 10 MG TABLET PO SCH (08:12)
[2021-01-13] MEDS: AZELASTINE HCL 0.1% NASAL 200 SPRAYS/27,400 MCG BTL SCH (08:12)
[2021-01-13 08:24] LABS: Estimated Average Glucose 111 mg/dl; Hemoglobin A1C 5.5 % (4.5-5.6)
[2021-01-13 08:37] LABS: Calcium 8.7 mg/dl (8.5-10.1); Creatinine Clr Calc Pharmacy 154.9 ml/min; Est GFR (African American) 114.9 ml/min; Est GFR (Non-African American) 99.2 ml/min; Potassium 3.9 mmol/L (3.5-5.1)
[2021-01-13] MEDS ORDERED: VANCOMYCIN CONSULT ACTIVE PRN (08:56)
[2021-01-13] MEDS ORDERED: DOXYCYCLINE HYCLATE 100 MG CAP PO SCH (09:00)
[2021-01-13] MEDS ORDERED: VANCOMYCIN HCL 1,000 MG in SODIUM CHLORIDE 0.9% 250 ML IV SCH (09:00)
[2021-01-13] MEDS: DAPTOmycin 650 MG in SYRINGE 0 ML IV SCH (10:35)
--- NOTE | 2021-01-13 10:57 | Electrocardiogram Report ---
Test Reason : Blood Pressure : / mmHG Vent. Rate : 097 BPM Atrial Rate : 097 BPM P-R Int : 142 ms QRS Dur : 094 ms QT Int : 340 ms P-R-T Axes : 036 039 037 degrees QTc Int : 431 ms Normal sinus rhythm Normal ECG No previous ECGs available Confirmed by Damian Raines ([id number]) on 01/13/2021 10:57:05 AM Referred By: REFERRED SELF Confirmed By:Kain Raines
[2021-01-13] MEDS: IBUPROFEN 200 MG TAB PO PRN ×2 (12:40→20:25)
--- NOTE | 2021-01-13 15:20 | Hospitalist Progress Note ---
Date of Service January 13, 2021 Assessment & Plan (1) Sepsis: (2) Cellulitis: Present on admission with fever and chills Possible related to RLE cellulitis CT of RLE showed mild right pelvic and right inguinal lymphadenopathy with adjacent fat stranding. Mild skin thickening and subcutaneous fat stranding within the anteromedial thigh as well as the pretibial soft tissues. No loculated fluid collections to suggest an abscess. Doppler of RLE showed no evidence of DVT Received IV Cipro and doxy on admission Blood cx grew gram positive in cluster Will change IV doxy to Daptomycin Will monitor closely Bacteremia Blood cx grew gram positive cocci in clusters Elevated Procalcitonin and WBC IV doxycycline discontinued and started on IB+V Dapto WBC is trending down Will repeat blood cx Will get an echo Continue monitor closely Elevated glucose Hba1c 5.5 on 01/13/21 Continue monitor BS DVT px on Lovenox Code status Full code Admission and Anticipated Discharge Date Admission Date: January 12, 2021 Subjective Pt was seen and examined for follow up of RLE cellulitis Lying in bed with no distress watching soccer game Pt said that he feels ok He said that he is having tenderness in his RLE Denies any chest pain, palpitation, dizziness and SOB Review of Systems Review of Systems: All systems reviewed & are unremarkable except as noted in Subjective Physical Exam Physical Exam: General- No acute distress Head- atraumatic Eyes- PERRL, EOMI, ENT- oropharynx clear Neck- supple, no JVD Lungs- clear to auscultation Heart- regular rhythm; no murmur Abdomen- normal bowel sounds, soft, nontender Extremities- no calf tenderness, RLE erythema in the right lower anterior mid parada and right groin erythema with tenderness on palpation. Neuro- alert, oriented x 3; PERRL, EOMI; no facial palsy; no dysarthria Skin- warm & dry Results & Data Results & Data ([facility]) Vital Signs (Past 12 Hours) Vital Signs Temp Pulse Pulse Resp BP Pulse Ox 01/13/21 15:03 37.0 C 91 H 20 136/86 96 01/13/21 10:53 37.1 C 84 20 124/77 98 01/13/21 07:55 88 01/13/21 07:42 36.6 C 90 20 125/62 96 01/13/21 04:54 37.0 C 91 H 22 97
[2021-01-13] MEDS ORDERED: LORATADINE 10 MG TAB PO PRN (17:52)
[2021-01-13] MEDS ORDERED: SODIUM CHLORIDE 0.65% NA SOLN 45 ML (OCEAN) PRN (17:52)
[2021-01-13] MEDS: CIPROFLOXACIN / D5W 400 MG/200 ML BAG IV SCH (18:20)
[2021-01-13] MEDS: guaiFENesin 600 MG TABCR PO SCH (21:02)
[2021-01-14] MEDS: CIPROFLOXACIN / D5W 400 MG/200 ML BAG IV SCH ×2 (06:23→17:19)
[2021-01-14] MEDS: ENOXAPARIN INJ 40 MG/0.4 ML SYR SQ SCH (08:38)
[2021-01-14] MEDS: CETIRIZINE HCL 10 MG TABLET PO SCH (08:38)
[2021-01-14] MEDS: guaiFENesin 600 MG TABCR PO SCH ×2 (08:38→20:13)
[2021-01-14] MEDS: ADVANCED PROBIOTIC 1250 MG CAPSULE PO SCH (08:38)
[2021-01-14] MEDS: AZELASTINE HCL 0.1% NASAL 200 SPRAYS/27,400 MCG BTL SCH (08:38)
[2021-01-14 09:15] LABS: Hematocrit (blood only) 39.2 % (42-52); Hemoglobin 13.1 g/dL (14.0-18.0); Mean Corpuscular Hemoglobin 29.2 pg (25-34); Mean Corpuscular Hgb Conc 33.4 g/dL (32-36); Mean Corpuscular Volume 87.3 fL (80-100); Mean Platelet Volume 10.3 fL (7.4-10.4); Platelet Count 172 K/uL (130-400); RDW Coefficient of Variation 13.2 % (11.5-14.5); RDW Standard Deviation 42.7 fL (36.4-46.3); Red Blood Count 4.49 M/uL (4.7-6.1); White Blood Count 11.82 K/uL (4.8-10.8)
[2021-01-14 09:40] LABS: BUN Creatinine Ratio 16.8 (10-20); Calcium 8.8 mg/dl (8.5-10.1); Creatinine Clr Calc Pharmacy 161.5 ml/min; Est GFR (Non-African American) 104.4 ml/min; Potassium 3.6 mmol/L (3.5-5.1)
[2021-01-14] MEDS: DAPTOmycin 650 MG in SYRINGE 0 ML IV SCH (10:38)
[2021-01-14] MEDS ORDERED: ACETAMINOPHEN 325 MG TAB ONE (17:18)
--- NOTE | 2021-01-14 22:24 | Hospitalist Progress Note ---
Date of Service January 14, 2021 Assessment & Plan (1) Sepsis: (2) Cellulitis: Present on admission with fever and chills Possible related to RLE cellulitis CT of RLE showed mild right pelvic and right inguinal lymphadenopathy with adjacent fat stranding. Mild skin thickening and subcutaneous fat stranding within the anteromedial thigh as well as the pretibial soft tissues. No loculated fluid collections to suggest an abscess. Doppler of RLE showed no evidence of DVT Received IV Cipro and doxy on admission Blood cx grew gram positive in cluster- Staph species on Continue IV Daptomycin, will de-escalate antibiotic according to sensitivity Continue monitor closely Bacteremia Blood cx grew gram positive cocci in clusters -Staph Species Elevated Procalcitonin and WBC IV doxycycline discontinued and started on IV Dapto WBC is trending down Repeat blood cx pending We will consult ID C Echo showed no evidence of wall motion vegetation. We will de-escalate antibiotics according to sensitivity Elevated glucose Hba1c 5.5 on 6day. Is on Continue monitor BS DVT px on Lovenox Code status Full code Admission and Anticipated Discharge Date Admission Date: January 12, 2021 Subjective Pt was seen and examined for follow up of RLE cellulitis Lying in bed with no distress Pt said that he feels ok He said that the erythema in the right leg is spreading He had a fever this afternoon Denies any chest pain, palpitation, dizziness and SOB Review of Systems Review of Systems: All systems reviewed & are unremarkable except as noted in Subjective Physical Exam Physical Exam: General- No acute distress Head- atraumatic Eyes- PERRL, EOMI, ENT- oropharynx clear Neck- supple, no JVD Lungs- clear to auscultation Heart- regular rhythm; no murmur Abdomen- normal bowel sounds, soft, nontender Extremities- no calf tenderness, RLE erythema in the right lower anterior mid parada and right groin erythema with tenderness on palpation. Neuro- alert, oriented x 3; PERRL, EOMI; no facial palsy; no dysarthria Skin- warm & dry Results & Data Results & Data ([facility]) Vital Signs (Past 12 Hours) Vital Signs Temp Pulse Pulse Resp BP Pulse Ox 01/14/21 19:20 37.5 C 90 18 138/80 96 01/14/21 16:54 38.3 C H 01/14/21 15:32 37.7 C H 94 H 20 139/81 97 01/14/21 15:00 100 H 01/14/21 11:14 37.1 C 85 18 134/79 97
[2021-01-15] MEDS: CIPROFLOXACIN / D5W 400 MG/200 ML BAG IV SCH (06:08)
[2021-01-15] MEDS: ENOXAPARIN INJ 40 MG/0.4 ML SYR SQ SCH (08:29)
[2021-01-15] MEDS: ADVANCED PROBIOTIC 1250 MG CAPSULE PO SCH (08:29)
[2021-01-15] MEDS: CETIRIZINE HCL 10 MG TABLET PO SCH (08:30)
[2021-01-15] MEDS: AZELASTINE HCL 0.1% NASAL 200 SPRAYS/27,400 MCG BTL SCH (08:30)
[2021-01-15 08:37] LABS: Creatinine Clr Calc Pharmacy 150.2 ml/min; Est GFR (African American) 113.5 ml/min; Est GFR (Non-African American) 97.9 ml/min
[2021-01-15] MEDS: DAPTOmycin 650 MG in SYRINGE 0 ML IV SCH (09:47)
[2021-01-15] MEDS: guaiFENesin 600 MG TABCR PO SCH ×2 (09:47→21:15)
[2021-01-15 10:09] LABS: Hematocrit (blood only) 38.6 % (42-52); Hemoglobin 12.8 g/dL (14.0-18.0); Mean Corpuscular Hemoglobin 29.1 pg (25-34); Mean Corpuscular Hgb Conc 33.2 g/dL (32-36); Mean Corpuscular Volume 87.7 fL (80-100); Mean Platelet Volume 10.6 fL (7.4-10.4); Platelet Count 171 K/uL (130-400); RDW Coefficient of Variation 13.1 % (11.5-14.5); RDW Standard Deviation 42.6 fL (36.4-46.3); White Blood Count 10.48 K/uL (4.8-10.8)
[2021-01-15] MEDS ORDERED: ceFAZolin 2000MG 2,000 MG/15 ML SYR IV SCH ×2 (14:00→16:00)
--- NOTE | 2021-01-15 17:33 | Hospitalist Progress Note ---
Date of Service January 15, 2021 Assessment & Plan (1) Sepsis: (2) Cellulitis: Present on admission with fever and chills Possible related to RLE cellulitis CT of RLE showed mild right pelvic and right inguinal lymphadenopathy with adjacent fat stranding. Mild skin thickening and subcutaneous fat stranding within the anteromedial thigh as well as the pretibial soft tissues. No loculated fluid collections to suggest an abscess. Doppler of RLE showed no evidence of DVT Received IV Cipro and doxy on admission Blood cx grew gram positive in cluster- Staph species on On IV Daptomycin, will de-escalate antibiotic to Cefazolin Continue monitor closely Bacteremia Blood cx grew gram positive cocci in clusters -Staph Species Elevated Procalcitonin and WBC IV doxycycline discontinued and started on IV Dapto WBC is trending down Repeat blood cx no growth ID [facility] on board Echo showed no evidence of wall motion vegetation. Currently on Daptomycin, will transition to Cefazolin If develops rash, will transition back to Daptomycin Elevated glucose Hba1c 5.5 on 6day. Is on Continue monitor BS DVT px on Lovenox Code status Full code Admission and Anticipated Discharge Date Admission Date: January 12, 2021 Subjective Pt was seen and examined for follow up of RLE cellulitis Lying in bed with no distress Pt said that he feels ok He said that his pain improves Denies any chest pain, palpitation, dizziness and SOB Review of Systems Review of Systems: All systems reviewed & are unremarkable except as noted in Subjective Physical Exam Physical Exam: General- No acute distress Head- atraumatic Eyes- PERRL, EOMI, ENT- oropharynx clear Neck- supple, no JVD Lungs- clear to auscultation Heart- regular rhythm; no murmur Abdomen- normal bowel sounds, soft, nontender Extremities- no calf tenderness, RLE erythema in the right lower anterior mid parada and right groin erythema with tenderness on palpation. Neuro- alert, oriented x 3; PERRL, EOMI; no facial palsy; no dysarthria Skin- warm & dry Results & Data Results & Data ([facility]) Vital Signs (Past 12 Hours) Vital Signs Temp Pulse Pulse Resp BP Pulse Ox 01/15/21 15:19 37.3 C 95 H 20 137/79 96 01/15/21 15:00 104 H 01/15/21 11:03 37.0 C 81 20 122/77 97 06/21/21 07:00 83 01/15/21 06:54 36.8 C 77 18 143/82 H 98
[2021-01-15] MEDS ORDERED: diphenhydrAMINE Capsule 25 MG CAP PO ONE (21:19)
--- NOTE | 2021-01-15 21:19 | Communication Note ---
Date of Service: January 15, 2021 Notified by RN of pruritus symptoms after Ancef administration. AP MSSA bacteremia Cephalosporin hypersensitivity Doxycycline for now Will relay to AM provider.
[2021-01-15] MEDS ORDERED: DOXYCYCLINE HYCLATE 100 MG in DEXTROSE 5% 100 ML IV STA (21:20)
[2021-01-16] MEDS: IBUPROFEN 200 MG TAB PO PRN (01:40)
[2021-01-16] MEDS ORDERED: DOXYCYCLINE HYCLATE 100 MG in DEXTROSE 5% 100 ML IV SCH (09:00)
[2021-01-16] MEDS: guaiFENesin 600 MG TABCR PO SCH ×2 (09:25→20:54)
[2021-01-16] MEDS: DAPTOmycin 650 MG in SYRINGE 0 ML IV SCH (09:25)
[2021-01-16] MEDS: ADVANCED PROBIOTIC 1250 MG CAPSULE PO SCH (09:25)
[2021-01-16] MEDS: CETIRIZINE HCL 10 MG TABLET PO SCH (09:25)
[2021-01-16] MEDS: ENOXAPARIN INJ 40 MG/0.4 ML SYR SQ SCH (09:25)
[2021-01-16] MEDS: AZELASTINE HCL 0.1% NASAL 200 SPRAYS/27,400 MCG BTL SCH (09:26)
--- NOTE | 2021-01-16 18:26 | Hospitalist Progress Note ---
Date of Service January 16, 2021 Assessment & Plan (1) Sepsis: (2) Cellulitis: Present on admission with fever and chills Possible related to RLE cellulitis CT of RLE showed mild right pelvic and right inguinal lymphadenopathy with adjacent fat stranding. Mild skin thickening and subcutaneous fat stranding within the anteromedial thigh as well as the pretibial soft tissues. No loculated fluid collections to suggest an abscess. Doppler of RLE showed no evidence of DVT Received IV Cipro and doxy on admission Blood cx grew gram positive in cluster- Staph species on On IV Daptomycin, will de-escalate antibiotic to Cefazolin Patient was transitioned to cefazolin but developed hives, we started him back on Dapto Erythema and pain improved significantly Continue monitor closely Bacteremia Blood cx grew gram positive cocci in clusters -Staph Species Elevated Procalcitonin and WBC IV doxycycline discontinued and started on IV Dapto WBC is back to normal Repeat blood cx no growth ID [facility] on board Echo showed no evidence of wall motion vegetation. Case discussed with infectious disease in [place] recommended to continue Dapto to complete 14 days course if repeat blood culture remains negative We need to check CPK weekly while on Dapto Prescription for Dapto was given to case management Ultrasound-guided peripheral already placed Elevated glucose Hba1c 5.5 on 6day. Is on Continue monitor BS DVT px on Lovenox Code status Full code Disposition Possible discharge tomorrow if stable Admission and Anticipated Discharge Date Admission Date: January 12, 2021 Subjective Pt was seen and examined for follow up of RLE cellulitis Patient was walking in the hallway when I came to see him He said that he is feeling much much better today and lower extremity pain improves Denies any chest pain, palpitation, dizziness and SOB Review of Systems Review of Systems: All systems reviewed & are unremarkable except as noted in Subjective Physical Exam Physical Exam: General- No acute distress Head- atraumatic Eyes- PERRL, EOMI, ENT- oropharynx clear Neck- supple, no JVD Lungs- clear to auscultation Heart- regular rhythm; no murmur Abdomen- normal bowel sounds, soft, nontender Extremities- no calf tenderness, RLE erythema in the right lower anterior mid parada and right groin erythema with tenderness on palpation. Neuro- alert, oriented x 3; PERRL, EOMI; no facial palsy; no dysarthria Skin- warm & dry Results & Data Results & Data ([facility]) Vital Signs (Past 12 Hours) Vital Signs Temp Pulse Pulse Resp BP Pulse Ox 01/16/21 16:00 86 01/16/21 15:10 36.6 C 86 17 143/81 H 95 01/16/21 11:32 36.8 C 82 18 133/89 95 01/16/21 08:00 76 01/16/21 07:55 36.4 C L 69 18 156/78 H 99
[2021-01-16] MEDS: ACETAMINOPHEN 325 MG TAB PO PRN (22:53)
[2021-01-17 07:38] LABS: Hematocrit (blood only) 39.8 % (42-52); Hemoglobin 13.3 g/dL (14.0-18.0); Mean Corpuscular Hgb Conc 33.4 g/dL (32-36); Mean Corpuscular Volume 86.7 fL (80-100); Mean Platelet Volume 9.8 fL (7.4-10.4); Platelet Count 206 K/uL (130-400); RDW Standard Deviation 41.2 fL (36.4-46.3); Red Blood Count 4.59 M/uL (4.7-6.1); White Blood Count 9.94 K/uL (4.8-10.8)
[2021-01-17 08:11] LABS: Calcium 8.9 mg/dl (8.5-10.1); Creatinine Clr Calc Pharmacy 153.5 ml/min; Est GFR (African American) 116.4 ml/min; Est GFR (Non-African American) 100.4 ml/min; Potassium 3.9 mmol/L (3.5-5.1)
[2021-01-17] MEDS: ADVANCED PROBIOTIC 1250 MG CAPSULE PO SCH (08:51)
[2021-01-17] MEDS: guaiFENesin 600 MG TABCR PO SCH (08:52)
[2021-01-17] MEDS: CETIRIZINE HCL 10 MG TABLET PO SCH (08:52)
[2021-01-17] MEDS: ENOXAPARIN INJ 40 MG/0.4 ML SYR SQ SCH (08:52)
[2021-01-17] MEDS: AZELASTINE HCL 0.1% NASAL 200 SPRAYS/27,400 MCG BTL SCH (08:54)
[2021-01-17] MEDS: ACETAMINOPHEN 325 MG TAB PO PRN (09:00)
--- NOTE | 2021-01-17 09:48 | Hospitalist Progress Note ---
Date of Service January 17, 2021 Assessment & Plan (1) Sepsis: (2) Cellulitis: Present on admission with fever and chills Possible related to RLE cellulitis CT of RLE showed mild right pelvic and right inguinal lymphadenopathy with adjacent fat stranding. Mild skin thickening and subcutaneous fat stranding within the anteromedial thigh as well as the pretibial soft tissues. No loculated fluid collections to suggest an abscess. Doppler of RLE showed no evidence of DVT Received IV Cipro and doxy on admission Blood cx grew gram positive in cluster- Staph species on On IV Daptomycin, then de-escalated antibiotic to Cefazolin but developed hives, we started back on Dapto Erythema and pain improved significantly Continue monitor closely MSSA Bacteremia Blood cx grew gram positive cocci in clusters -Staph Species Elevated Procalcitonin and WBC IV doxycycline discontinued and started on IV Dapto WBC is back to normal Repeat blood cx no growth ID [facility] on board Echo showed no evidence of wall motion vegetation. Case discussed with infectious disease in [place] recommended to continue Dapto to complete 14 days course if repeat blood culture remains negative We need to check CPK weekly while on Dapto Prescription for Dapto was given to case management Ultrasound-guided peripheral already placed Also discussed with ID, that dapto dose should be between 6 to 8 mg/kg, patient is 140 kg, discussed with pharmacy to adjust (increase) dose to 900mg IV daily Elevated glucose Hba1c 5.5 on 01/13. Continue monitor BS DVT px on Lovenox Code status Full code Disposition: Plan to discharge today w/ HH Admission and Anticipated Discharge Date Admission Date: January 12, 2021 Subjective Pt was seen and examined for follow up of RLE cellulitis , MSSA bacteremia Currently is lying in bed, in no acute distress, says that he is much improved Reports his right lower extremity feels much better, and he is able to walk on it now He is eager to be discharged home Reports occasional chills at night, no fever reported No abdominal pain, nausea, patient reports good appetite Review of Systems Review of Systems: All systems reviewed & are unremarkable except as noted in HPI & below Constitutional: + chills; no fever Respiratory: no cough and no dyspnea Cardiovascular: no chest pain and no palpitations Gastrointestinal: no abdominal pain and no vomiting Physical Exam Physical Exam: General- Obese M, No acute distress Head- atraumatic Eyes- PERRL, EOMI, ENT- oropharynx clear Neck- supple, no JVD Lungs- clear to auscultation b/l Heart- regular rhythm; no murmur Abdomen- normal bowel sounds, soft, obese, nontender Extremities- no calf tenderness, RLE erythema in the right lower anterior mid parada and right groin erythema with tenderness on palpation (much improved). Neuro- alert, oriented x 3; PERRL, EOMI; no facial palsy; no dysarthria Skin- warm & dry Results & Data Results & Data ([facility]) Vital Signs (Past 12 Hours) Vital Signs Temp Pulse Pulse Resp BP Pulse Ox 01/17/21 07:29 36.7 C 67 18 165/93 H 98 01/17/21 03:10 36.6 C 60 18 113/71 97 01/17/21 01:47 82 01/16/21 23:12 36.9 C 93 H 20 136/77 95 Laboratory Results 01/17/21 01/17/21 Range/Units 07:19 07:19 WBC 9.94 (4.8-10.8) K/uL RBC 4.59 L (4.7-6.1) M/uL Hgb 13.3 L (14.0-18.0) g/dL Hct 39.8 L (42-52) % MCV 86.7 (80-100) fL MCH 29.0 (25-34) pg MCHC 33.4 (32-36) g/dL RDW Std Deviation 41.2 (36.4-46.3) fL RDW Coeff of Vargas 13.0 (11.5-14.5) % Plt Count 206 (130-400) K/uL MPV 9.8 (7.4-10.4) fL Sodium 138 (136-145) mmol/L Potassium 3.9 (3.5-5.1) mmol/L Chloride 107 (98-107) mmol/L Carbon Dioxide 27 (21-32) mmol/L Anion Gap 4.0 (3-11) BUN 15 (7-18) mg/dl Creatinine 0.95 (0.6-1.4) mg/dl Est Cr Clr Drug Dosing 153.5 ml/min Est GFR ( Amer) 116.4 ml/min Est GFR (Non-Af Amer) 100.4 ml/min BUN/Creatinine Ratio 16.0 (10-20) Glucose 92 (70-99) mg/dl Calcium 8.9 (8.5-10.1) mg/dl Medications Administered Current Inpatient Medications Acetaminophen (Acetaminophen 325 Mg Tab) 650 mg PO Q8H PRN PRN Reason: Fever Stop: 02/13/21 16:58 Last Admin: 01/17/21 09:00 Dose: 650 mg Documented by: Azelastine HCl (Azelastine Hcl 0.1% Nasal 200 Sprays/27,400 Mcg Btl) 2 sprays NA DAILY [facility] Stop: 02/12/21 08:59 Last Admin: 01/17/21 08:54 Dose: 2 sprays Documented by: Cetirizine HCl (Cetirizine Hcl 10 Mg Tablet) 10 mg PO DAILY [facility] Stop: 02/12/21 08:59 Last Admin: 01/17/21 08:52 Dose: 10 mg Documented by: Enoxaparin Sodium (Enoxaparin Inj 40 Mg/0.4 Ml Syr) 40 mg SQ QAM [facility] Stop: 02/12/21 08:59 Last Admin: 01/17/21 08:52 Dose: 40 mg Documented by: Fluticasone Propionate (Fluticasone Propionate Na Spr 16 Gm Btl) 2 sprays COREY DAILY PRN PRN Reason: allergies Stop: 02/11/21 23:01 Guaifenesin (Guaifenesin 600 Mg Tabcr) 600 mg PO Q12 [facility] Stop: 02/12/21 19:59 Last Admin: 01/17/21 08:52 Dose: 600 mg Documented by: Lorazepam (Ativan) 0.5 mg in 1 mls @ 1 mls/min IV Q4H PRN PRN Reason: Anxiety/Agitation Stop: 02/11/21 23:01 Promethazine HCl 12.5 mg/ (Sodium Chloride) 50.5 mls @ 202 mls/hr IV Q6H PRN PRN Reason: Nausea And Vomiting Stop: 02/11/21 23:01 Daptomycin 650 mg/ Syringe 13 mls @ 6.5 mls/min IV Q24H [facility]; Protocol Stop: 01/30/21 09:59 Last Admin: 01/16/21 09:25 Dose: 6.5 mls/min Documented by: Ibuprofen (Ibuprofen 200 Mg Tab) 200 mg PO Q6H PRN PRN Reason: Mild Pain Stop: 02/11/21 23:01 Last Admin: 01/16/21 01:40 Dose: 200 mg Documented by: Ketorolac Tromethamine (Ketorolac Tromethamine 15 Mg/Ml Vial) 15 mg IV Q6H PRN PRN Reason: Pain Stop: 01/17/21 23:01 Last Admin: 01/13/21 21:54 Dose: 15 mg Documented by: Lactobacillus Acidoph/Casei/Rhamnos (Advanced Probiotic 1250 Mg Capsule) 2 cap PO DAILY [facility] Stop: 02/12/21 08:59 Last Admin: 01/17/21 08:51 Dose: 2 cap Documented by: Miscellaneous Information (Daptomycin Consult Active) 1 ea N/A UD PRN PRN Reason: Consult Stop: 02/15/21 08:13 Sodium Chloride (Sodium Chloride 0.65% Na Soln 45 Ml (Esmeralda)) 2 sprays NA Q4H PRN PRN Reason: nasal congestion Stop: 02/12/21 17:51 Last Admin: 01/15/21 08:29 Dose: 2 sprays Documented by:
[2021-01-17] MEDS: DAPTOmycin 650 MG in SYRINGE 0 ML IV SCH (11:00)
[2021-01-17] MEDS ORDERED: DAPTOmycin 250 MG in SYRINGE 0 ML IV ONE (11:15)
--- NOTE | 2021-01-17 11:38 | Discharge Summary ---
Date of Service January 17, 2021 Admission HPI Per Admitting Provider Pt is 40 y/o M with PMH tobacco smoker, prior history nasal septum repair presented to ER with complaint of fever. Patient states 6 days ago started with nasal congestion, sore throat, rhinorrhea, nonproductive cough. Has been having frontal headache and myalgias. He reports 4 days ago went to [facility] and had reported negative COVID-19 test at that time. Reports headache is frontal in location. patient states he is been checking his temperature and they have been 99F. Today he had sweats and chills and took his temperature and had reported 105F. He took Aleve which decreased fever. He reports today had painful area to right upper anterior thigh and noted area of erythema that was tender and warm to palpation. Later in the day noted similar red area to right lower anterior leg that is tender to palpation. Denies any discharge. Since being in ER noticed some redness to right and left knee however denies any discomfort or loss of range of motion. Denies other joint edema or erythema. Patient denies any known ill contacts. Denies recent travel. Reports no sexual activity for 4 years. Denies IV drug use. Denies known insect/tick bite. Denies history of MRSA. History eczema and reports has had dry scaly patch to right anterior lower leg for years without changes. Reports had second Pfizer COVID-19 vaccine on December 11, 2020. Denies N/V/D/C, loss of taste or smell, dizziness, syncope, vision changes, neck pain, CP, orthopnea, palpitations, dysphagia, dysphagia, choking, otalgia, abdominal pain, paresthesias, weakness, extremity weakness, extremity edema, urinary symptoms. In ER T: 36C, P: 139 down to 91, BP: 137/76, 96% on room air. WBC: 17, ESR: 27, CRP: 5.5, lactate: 1.5, procalcitonin: 6.6. Negative COVID 19 PCR Tickborne illness labs pending CT head: No acute intracranial hemorrhage, no midline shift or space occupying lesions. Inflammatory changes involving left ethmoid air cells as well as visualized portion of the left sphenoid and maxillary sinuses which could represent sinusitis. Chest x-ray: No acute infiltrate RLE venous Doppler: No DVT In ER was given 2 L NSS. Patient being admitted for further evaluation and treatment Admission Exam Per Admitting Provider General: no distress, WDWN Head: normocephalic, atraumatic Eyes: PERRL, EOM's intact, conjunctiva non-injected, anicteric ENT: normal inspection external ears, nose, pharynx without erythema, uvula midline, tonsils without exudate or edema, mucous membranes moist Neck: supple, trachea midline, non-tender, ROM intact Lungs: clear, no respiratory distress, no wheezing/rhonchi/rales CV: RRR, no murmur, no pretibial edema Abd: normal BS, soft, non-tender, No CVA tenderness Ext: no cyanosis, no calf tenderness; RLE: +area of erythema measures 12 cm x 6 cm with warmth and tenderness to palpation, + area of erythema measures 13 cm x 17 cm to right lower anterior mid parada with tenderness and warmth to palpation. Right mid anterior parada with plaque. No purulent drainage noted. Left medial and anterior knee with slight erythema, no warmth or tenderness to palpation, range of motion intact. Right medial knee with erythema with no warmth or tenderness to palpation, range of motion intact and nontender. Bilateral elbow and ankles without edema or erythema Neuro: A&O x 3, no focal deficits noted, normal affect Skin: warm, dry, as above in extremities. No rashes noted to palms or soles. Right index finger nail yellow discoloration, otherwise nails without abnormality Principal Diagnosis Sepsis, MSSA bacteremia, right lower extremity cellulitis Discharge Exam General- Obese M, No acute distress Head- atraumatic Eyes- PERRL, EOMI, ENT- oropharynx clear Neck- supple, no JVD Lungs- clear to auscultation b/l Heart- regular rhythm; no murmur Abdomen- normal bowel sounds, soft, obese, nontender Extremities- no calf tenderness, RLE erythema in the right lower anterior mid parada and right groin erythema with tenderness on palpation (much improved). Neuro- alert, oriented x 3; PERRL, EOMI; no facial palsy; no dysarthria Skin- warm & dry Discharge Data Allergies Allergy/AdvReac Type Severity Reaction Status Date / Time Sulfa (Sulfonamide Allergy Severe anaphylaxis Unverified 01/12/21 20:22 Antibiotics) Cephalosporins Allergy Unknown Hives Unverified 01/12/21 20:23 Consultations 01/12/21 19:04 ED Decision to Admit Stat 01/14/21 18:55 Consult Infectious Diseases Routine Ordered Studies 01/12/21 15:20 CT head/brain wo con Stat IMPRESSION: 1. No acute intracranial hemorrhage, no midline shift or space occupying lesions. 2. Inflammatory changes involving left ethmoid air cells as well as visualized portion of the left sphenoid and maxillary sinuses which could represent sinusitis. US venous doppler LE RT Stat FINDINGS: There is normal compressibility, flow, and augmentation within the right lower extremity deep venous system. Mildly enlarged right inguinal lymph node measuring 4.1 x 1.3 x 3.1 cm. This demonstrates a normal fatty hilum and thin cortex. IMPRESSION: No DVT within the right lower extremity 01/12/21 20:39 CT femur RT w con Urgent CT tib/fib RT w con Urgent IMPRESSION: 1. Mild right pelvic and right inguinal lymphadenopathy with adjacent fat stranding. This is nonspecific but could be reactive. Follow-up right inguinal ultrasound in one to 2 months is recommended to ensure resolution. 2. Mild skin thickening and subcutaneous fat stranding within the anteromedial thigh as well as the pretibial soft tissues. This is nonspecific but favors a cellulitis. No loculated fluid collections to suggest an abscess. 3. No underlying bony abnormality within the right lower extremity. Hospital Course (1) Sepsis: (2) Cellulitis: Present on admission with fever and chills Possible related to RLE cellulitis CT of RLE showed mild right pelvic and right inguinal lymphadenopathy with adjacent fat stranding. Mild skin thickening and subcutaneous fat stranding within the anteromedial thigh as well as the pretibial soft tissues. No loculated fluid collections to suggest an abscess. Doppler of RLE showed no evidence of DVT Received IV Cipro and doxy on admission Blood cx grew gram positive in cluster- Staph species on On IV Daptomycin, then de-escalated antibiotic to Cefazolin but developed hives, we started back on Dapto Erythema and pain improved significantly Continue monitor closely Right pelvic and right inguinal lymphadenopathy Noted on CT, likely secondary to above recommend follow-up Right inguinal ultrasound in1 to 2 months to ensure resolution MSSA Bacteremia Blood cx grew gram positive cocci in clusters -Staph Species Elevated Procalcitonin and WBC IV doxycycline discontinued and started on IV Dapto WBC is back to normal Repeat blood cx no growth ID [facility] on board Echo showed no evidence of wall motion vegetation. Case discussed with infectious disease in [place] recommended to continue Dapto to complete 14 days course if repeat blood culture remains negative We need to check CPK weekly while on Dapto Prescription for Dapto was given to case management Ultrasound-guided peripheral already placed Also discussed with ID, that dapto dose should be between 6 to 8 mg/kg, patient is 140 kg, discussed with pharmacy to adjust (increase) dose to 900mg IV daily Elevated glucose Hba1c 5.5 on 01/13. Continue monitor BS Follow up as outpt Disposition: Plan to discharge today w/ HH Total Time Total Time Spent Total Time Spent (In Minutes): 40 Total Time Includes: Examination of the Patient, Discharge Planning, Medication Reconciliation and Communication With Other Providers Discharge Plan Discharge Items Patient Disposition: Home - Home Health Services Reason For Visit: SEPSIS Discharge Diagnosis: Sepsis, MSSA bacteremia, right lower extremity cellulitis Condition on Discharge: Good Activity: Per Instructions section Non-emergency contact: Primary Care Provider Call non-emergency contact if: you have any medication questions and your symptoms worsen Follow-up/Referrals: Savita Argueta MD [Primary Care Provider] - (Date & Time 01/24/2021 10:40 AM Provider Savita Cristina MD Department General Internal Medicine [facility] ) Diet: Regular Addtl Attending Provider Instructions: Follow-up with your primary care doctor, the appointment was scheduled for you for January 24. You will need to be on IV daptomycin 900 mg daily for next 12 days. You will need to have blood work done while on daptomycin, CBC, CMP, CK weekly. Your primary care doctor will follow up on these labs. You can take Tylenol for pain, 1000 mg three times a day. Max daily dose is 3000 mg a day. Pending Studies at Discharge: Yes Studies:: Final blood cultures Stand-Alone Forms: My [facility] [place], Smoking Cessation Medications and DC Order Prescriptions: New Advanced Probiotic 625 mg (10 billion cell) Capsule 2 cap PO DAILY Qty: 14 RF: 0 Continued cetirizine [Zyrtec] 10 mg Tablet 10 mg PO DAILY RF: 0 acetaminophen [Tylenol Extra Strength] 500 mg Tablet 1,000 mg PO Q6H PRN (Reason: Pain) RF: 0 naproxen sodium [Aleve] 220 mg Tablet 440 mg PO BID PRN (Reason: Pain) RF: 0 azelastine 137 mcg (0.1 %) aerosol,spray 2 spray INTRANASAL DAILY RF: 0 fluticasone propionate [Flonase Allergy Relief] 50 mcg/actuation [place],Suspension 2 spray INTRANASAL DAILY PRN (Reason: allergies) RF: 0 Discharge Orders: Discharge Order (Routine); Ordered 01/17/21 Ordered By: Maximiliano Hussein Admission Data Admit Date/Time: 01/12/21 20:56 Attending Provider: Maximiliano Hussein Admit Provider: Joel Be Primary Care Provider: Savita Argueta Other Providers: Joel Be ; Omari Deleon ; Jyoti Mendoza ; Liam Moreno I. ; Bunny Rincon II ; Kristy Maynard ; Goznalo Philippe ; Roberto,Inderjitx ; [facility] ; Raymond Snow
[2021-01-17 15:52] LABS: Babesia microti DNA Not Detected (Not Detected); Ehrlichia chaff IgG Ab <1:64 (<1:64); Ehrlichia chaff IgM Ab <1:20 (<1:20)
[2021-01-18] MEDS ORDERED: DAPTOmycin 900 MG in SYRINGE 0 ML IV SCH (11:00)
== END 2021-01-17 15:25 | disposition home health service (06) | DRG 872 ==
LOC: ED 14:34 → SUATTDRO 20:56 → 2N 20:56
DX: Z79.899 Other long term (current) drug therapy; Z88.1 Allergy status to other antibiotic agents; L29.8 Other pruritus; A41.01 Sepsis due to Methicillin susceptible Staphylococcus aureus; R59.0 Localized enlarged lymph nodes; T36.1X5A Adverse effect of cephalosporins and other beta-lactam antibiotics, initial encounter; R73.9 Hyperglycemia, unspecified; Z51.81 Encounter for therapeutic drug level monitoring; Z88.8 Allergy status to other drugs, medicaments and biological substances; Z20.822 Contact with and (suspected) exposure to COVID-19; F17.290 Nicotine dependence, other tobacco product, uncomplicated; Z88.2 Allergy status to sulfonamides; F17.210 Nicotine dependence, cigarettes, uncomplicated; L03.115 Cellulitis of right lower limb